=== PATIENT | female | born 1930 | race Caucasian/White ===

== ENCOUNTER 2019-01-22 15:51 | Emergency (ER) | payer OTHER ==
[~2019-01-22] VITALS: Ht 165.1 cm; Wt 54.4 kg
[2019-01-22] MEDS ORDERED: METFORMIN HCL500 MG (16:17)
[2019-01-22] MEDS ORDERED: NAMENDA5 MG (16:18)
[2019-01-22] MEDS ORDERED: COZAAR25 MG (22:21)
[2019-01-22] MEDS ORDERED: AMIODARONE HCL200 MG (22:21)
[2019-01-22] MEDS ORDERED: NAMENDA10 MG (22:22)
[2019-01-22] MEDS ORDERED: ZOCOR20 MG (22:22)
[2019-01-22] MEDS ORDERED: PREDNISOLONE SO10 MG (22:23)
== END 2019-01-22 19:37 | disposition home or self-care (01) ==
LOC: ER 15:51
DX: R06.02 Shortness of breath (principal); J06.9 Acute upper respiratory infection, unspecified

== ENCOUNTER 2019-05-17 06:18 | Emergency (ER) | payer OTHER ==
[~2019-05-17] VITALS: Ht 165.1 cm; Wt 49.9 kg
[~2019-05-17 06:18] MED LIST: AMIODARONE HCL200 MG; COZAAR25 MG; METFORMIN HCL500 MG; NAMENDA10 MG; NAMENDA5 MG; PREDNISOLONE SO10 MG; ZOCOR20 MG
[2019-05-17] MEDS ORDERED: NEURIN (07:01)
[2019-05-17] MEDS ORDERED: [UNRECOGNIZED DRUG - OTHER] (07:02)
[2019-05-17] MEDS ORDERED: RIVASTIGMINE (07:04)
== END 2019-05-17 14:32 | disposition home or self-care (01) ==
LOC: ER 06:18
DX: S01.02XA Laceration with foreign body of scalp, initial encounter (principal); S19.89XA Other specified injuries of other specified part of neck, initial encounter; G30.0 Alzheimer's disease with early onset; F02.80 Dementia in other diseases classified elsewhere, unspecified severity, without behavioral disturbance, psychotic disturbance, mood disturbance, and anxiety; W18.09XA Striking against other object with subsequent fall, initial encounter; Y93.89 Activity, other specified; Y92.018 Other place in single-family (private) house as the place of occurrence of the external cause; Y99.8 Other external cause status